=== PATIENT | male | born 1970 | race African-American/Black ===

== ENCOUNTER 2017-06-11 21:23 | Emergency (ER) | payer OTHER ==
[~2017-06-11] VITALS: Ht 182.9 cm; Wt 99.8 kg
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
--- NOTE | 2017-06-11 22:05 | NUR ---
DR. ROBERTS AT BEDSIDE FOR EVAL.
--- NOTE | 2017-06-11 22:17 | NUR ---
RADIOLOGY AT BEDSIDE FOR XRAY
[2017-06-11] MEDS ORDERED: MORPHINE SULFATE INJ 2 MG/ML DISP.SYRIN IV ONE (22:30)
[2017-06-11] MEDS ORDERED: ONDANSETRON HCL/PF - ER 4 MG/2 ML VIAL IV ONE (22:30)
[2017-06-11] MEDS ORDERED: MORPHINE SULFATE INJ 4 MG/ML DISP.SYRIN ONE (22:46)
[2017-06-11] MEDS ORDERED: ONDANSETRON HCL/PF 4 MG/2 ML VIAL ONE (22:46)
[2017-06-11] MEDS ORDERED: TDAP [DIPH/PERTUSSIS/TET] 0.5 ML VIAL IM ONE ×2 (22:53→23:00)
--- NOTE | 2017-06-11 23:53 | NUR ---
DR. ROBERTS AT BEDSIDE SPEKAING TO PT REGARDING RESULTS.
--- NOTE | 2017-06-12 00:05 | NUR ---
IV removed. Catheter intact and site benign. Pressure and 4x4 applied to site. No bleeding noted. Patient discharged to home in stable condition. Written and verbal after care instructions given. Patient verbalizes understanding of instruction. ambulatory with a steady gait. instructed pt not to drive. pt verbalize understanding. pt accompanied by girlfriend
[2017-06-12 00:06] VITALS: BP 150/68
== END 2017-06-12 00:05 | disposition home or self-care (01) ==
LOC: ER 21:25
DX: M25.512 Pain in left shoulder (principal); M79.645 Pain in left finger(s); V49.49XA Driver injured in collision with other motor vehicles in traffic accident, initial encounter; Y93.89 Activity, other specified; Y92.410 Unspecified street and highway as the place of occurrence of the external cause; Y99.8 Other external cause status
CPT/HCPCS: 73020; 73130-TC; 90715; J2270; J2405